=== PATIENT | male | born 1965 | race Caucasian/White ===

== ENCOUNTER 2017-11-22 08:21 | Day surgery (SDC) | payer BC ==
[2017-11-22] MEDS ORDERED: LACTATED RINGERS 1,000 ML IV ONE (08:34)
[2017-11-22] MEDS ORDERED: fentaNYL 100 MCG/2 ML VIAL IVP ONE (09:20)
[2017-11-22] MEDS ORDERED: MIDAZOLAM 2 MG/2 ML VIAL IVP ONE (09:20)
[2017-11-22 11:26] VITALS: BP 126/78
== END 2017-11-22 08:22 | disposition home or self-care (01) ==
LOC: SDS 08:21
PROVIDERS: ATTEND Surgery
PROC: 0DB68ZX Excision of Stomach, Via Natural or Artificial Opening Endoscopic, Diagnostic (ICD-10-PCS; 2017-11-22)
PROC: 0DBK8ZX Excision of Ascending Colon, Via Natural or Artificial Opening Endoscopic, Diagnostic (ICD-10-PCS; principal; 2017-11-22 09:15)
PROC: 0DB58ZX Excision of Esophagus, Via Natural or Artificial Opening Endoscopic, Diagnostic (ICD-10-PCS; 2017-11-22 09:15)
DX: Z12.11 Encounter for screening for malignant neoplasm of colon (principal); K21.9 Gastro-esophageal reflux disease without esophagitis; K31.7 Polyp of stomach and duodenum; D12.2 Benign neoplasm of ascending colon; K57.30 Diverticulosis of large intestine without perforation or abscess without bleeding
CPT/HCPCS: 43239; 45380; J7120

== ENCOUNTER 2019-09-10 08:00 | Outpatient (CLI) | payer BC, MEDICAID ==
[2019-09-10 12:34] LABS: BASOPHILS % (AUTO) 0.5 %; EOSINOPHILS # (AUTO) 0.2 10^3/uL (0.0-0.7); EOSINOPHILS % (AUTO) 2.8 %; HGB - HEMOGLOBIN 13.3 g/dL (14.0-18.0); LYMPHOCYTES # (AUTO) 1.6 10^3/uL (1.5-3.5); LYMPHOCYTES % (AUTO) 25.1 %; MEAN CORPUSCULAR HEMOGLOBIN 29.3 pg (27.0-31.0); MEAN CORPUSCULAR HGB CONC 33.3 g/dL (32.0-36.0); MEAN CORPUSCULAR VOLUME 88.1 fL (80.0-94.0); MEAN PLATELET VOLUME 10.9 fL (7.4-11.4); MONOCYTES # (AUTO) 0.6 10^3/uL (0.0-1.0); MONOCYTES % (AUTO) 9.8 %; NEUTROPHILS # (AUTO) 3.9 10^3/uL (1.5-6.6); NEUTROPHILS % (AUTO) 61.3 %; PLT - PLATELET COUNT 197 10^3/uL (130-450); RED BLOOD COUNT 4.54 10^6/uL (4.70-6.10); RED CELL DISTRIBUTION WIDTH 14.2 % (12.0-15.0); WHITE BLOOD COUNT 6.3 x10^3/uL (4.8-10.8)
[2019-09-10 12:50] LABS: ALBUMIN 4.4 g/dL (3.2-5.5); ALBUMIN/GLOBULIN RATIO 1.8 (1.0-2.2); ALKALINE PHOSPHATASE 62 IU/L (42-121); ALT ALANINE AMINOTRANSFERASE 24 IU/L (10-60); AST ASPARTATE AMINOTRANSFERASE 22 IU/L (10-42); BILIRUBIN,TOTAL 0.9 mg/dL (0.2-1.0); BUN - BLOOD UREA NITROGEN 15 mg/dL (6-20); CALCIUM 8.8 mg/dL (8.5-10.3); CARBON DIOXIDE - CO2 25 mmol/L (21-32); CHLORIDE 108 mmol/L (101-111); CHOL/HDL RATIO 4.3 (<5.0); CHOLESTEROL 204 mg/dL; GFR - MDRD 77 (>89); GLUCOSE 102 mg/dL (70-100); HDL CHOLESTEROL 47 mg/dL; LDL CHOLESTEROL,CALCULATED 137 mg/dL; LDL/HDL RATIO 2.9 (<3.6); SODIUM 141 mmol/L (135-145); TOTAL PROTEIN 6.9 g/dL (6.7-8.2); VLDL CHOLESTEROL 20 mg/dL
== END 2019-09-10 23:59 | disposition home or self-care (01) ==
LOC: LAB.WCP 08:00
PROVIDERS: ATTEND Family Medicine
DX: Z00.00 Encounter for general adult medical examination without abnormal findings (principal); Z12.5 Encounter for screening for malignant neoplasm of prostate
CPT/HCPCS: 36415; 80053; 80061; 83721; 84153; 84443; 85025

== ENCOUNTER 2020-09-23 10:09 | Outpatient (CLI) | payer MEDICAID ==
[2020-09-23 11:15] VITALS: BP 130/90
--- NOTE | 2020-09-23 11:15 | SLEEP CARE CONSULTATION ---
Information from patient questionnaire entered by Mckenzie Wong. I have reviewed and concur with the information entered by Mckeznie Wong. This document represents the service I personally performed and the decisions made by me, Nay Dangelo ARNP. History of Present Illness Service Date and Time: 09/23/2020 1009 Reason for Visit: New patient Chief Complaint: reports: Unrefreshed sleep, Observed pauses in breathing, Frequent awakenings at night, Other (difficulty falling asleep). denies: Insomnia, Snoring, Excessive daytime sleepiness, Fatigue Date of Onset: 25 years Usual bedtime: midnight Time it takes to fall asleep: 30-60 minutes Snores at night: No Observed to quit breathing while asleep: Yes (not in a long time) Sleeps alone due to snoring: No Number of times waking at night: 2-3 Reasons for waking at night: reports: Pain. denies: Choking, Snoring, Gasping for air Toss, Turn, or Twitch while sleeping: Yes Recalls having dreams: Yes Usually gets out of bed at: 0745 Tuesday-Tuesday, later Tuesday/Tuesday Feels refreshed in the morning: No Morning headache: No Sleepy or fatigued during the day: No Ever fallen asleep while driving: Yes (no accident; drowsy on long trips) Takes day naps: No Dreams during day naps: No Prior sleep studies: No Additional HPI information: I had the pleasure of seeing LINDA PACK today regarding the possibility of him having a sleep disorder. His current complaints are observed pauses in breathing, unrefreshed sleep, and frequent night awakenings. He states he has had difficulty falling asleep. He does have a history of a myofascial pain syndrome for which he was taking 2 oxycodone nightly to be able to sleep because he was waking up in pain several time during the night. About 6 weeks ago he stopped taking the oxycodone and after the first 5-6 days he feels he is sleeping better. He is currently using CBD inhaled in a vaporizer. He is considering transitioning to a tincture. His is here at the encouragement of his and his PCP. - Parasomnia Symptoms Ever been unable to move upon waking from sleep: Yes (once many years ago) Walks in sleep: No Talks in sleep: No Ever acted out dreams in sleep: No Ever felt weak in the knees when startled or emotional: No Bothered by creepy, crawly, restless sensations in legs: Yes (when very tired or if using laptop on lap; legs pinned in; massages) Problems with memory or concentration: Yes (some for time when not getting sleep/ sleep deprived memory gaps) Subjective Initial [place] Sleepiness Scale score: 8 (in 2020) Past Medical History Past Medical History: reports: Hypertension, Anxiety (no treatment needed), Impotence (sometime has difficulty maintaining an erection), GERD (treated with omeprazole, no issue for years), Attention deficit. 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 Patient is and lives in [place]. Have you smoked in the past 12 months: No Alcohol use: No Caffeine use: Yes Caffeine amount and frequency: 1 cup tea/day, Tuesday-Tuesday Family History Family history of sleep disordered breathing: Yes Family Hx Sleep Apnea: Sibling: Snoring, Sleep apnea - Treated Allergies and Home Medications Drug allergies reviewed: Yes (NKDA) Home medication list reviewed: Yes Allergy and home medication list: prilosec propanolol magnesium turmeric Review of Systems Weight gain over past 5 years: 20 Cardiovascular: reports: high blood pressure. denies: palpitations, chest pain, irregular heart rate or pulse, leg or foot swelling Respiratory: denies: shortness of breath, chronic cough Gastrointestinal: denies: heartburn, difficulty swallowing Urinary: reports: impotence Neurological: denies: headaches, seizure, head trauma, speech dysfunction, gait or balance problems Psychiatric: reports: Attention Deficit Hyperactivity, anxiety. denies: depression, mood disorder, claustrophobia Ear/Nose/Throat: reports: tonsillectomy, wisdom teeth removed. denies: nasal congestion, sinus problems, nose bleeds, dry mouth/throat, injury to nose Endocrine: denies: thyroid disease Musculoskeletal: reports: back pain. denies: muscle pain or cramping, mobility problems Immunologic: denies: allergies to food or environment Physical Exam Blood Pressure: 130/90 Cuff size: long Heart Rate: 63 O2 Saturation: 96 Height: 5 ft 9.5 in Weight: 247 lb Body Mass Index: 35.9 BMI Classification: Obese Neck circumference: 17.5 HEENT: No craniofacial malformation Nostrils: patent to airflow Turbinates: normal Septum: midline Mouth and throat: narrow oropharynx Soft palate: normal Hard palate: normal Uvula: normal Uvula visualization: 25% Mallampati Class III Tongue: enlarged in size with teeth moss on lateral edges Tonsils: absent bilaterally Chin and jaw: normal size and position Neck: normal w/o lymphadenopathy or thyromegaly Heart: regular rate and rhythm Lungs: clear bilaterally Impression and Plan 1. Suspected Obstructive Sleep Apnea-Hypopnea Syndrome, as observed cessation of breath while asleep, unrefreshed sleep, frequent night awakenings and cognitive impairment. He has a history of hypertension acid reflux and anxiety. I reviewed with patient that a narrow oropharynx and obesity are common predisposing factors for obstructive sleep apnea-hypopnea syndrome. I recommend proceeding to polysomnography to confirm the diagnosis and to assess severity. If the patient has significant sleep disordered breathing, a manual CPAP titration study will also be performed to find the optimal treatment pressure. I informed the patient of what the sleep studies involve and after some discussion, obtained agreement to proceed. The pathophysiology of obstructive sleep apnea-hypopnea syndrome was discussed with the patient and health risks of cardiovascular and cerebrovascular disease if not treated. AASM brochure for obstructive sleep apnea-hypopnea syndrome given and reviewed. Risks of drowsy driving discussed in detail and patient advised to avoid long distance driving and to stock puller at the first sign of drowsiness. Patient agreed to plan. * Schedule polysomnography +- manual CPAP titration study. * Avoid long distance driving or driving when feeling sleepy. * Avoid alcohol, sedative and muscle relaxant around bedtime. * Attempt to lose weight. * Review instructions provided by trained office staff on how to prepare for the sleep study. * Return for follow-up after sleep study completed. Counseling Topics: Weight loss health impact Visit Type: In Office Time Spent with Patient (minutes): 39 Provider Statement: I spent 100% of the Face to Face Visit with the patient with greater than 50% spent counseling the patient and coordination of care.
== END 2020-09-23 10:10 | disposition home or self-care (01) ==
LOC: SC 10:09
PROVIDERS: ATTEND Nurse Practitioner Family
DX: G47.8 Other sleep disorders (principal); R06.81 Apnea, not elsewhere classified; E66.9 Obesity, unspecified; Z68.35 Body mass index [BMI] 35.0-35.9, adult
CPT/HCPCS: 99203; 99212

== ENCOUNTER 2020-11-24 13:06 | Outpatient (CLI) | payer MEDICAID | END 2020-11-24 13:07 | disposition home or self-care (01) | LOC: SC 13:06 | PROVIDERS: ATTEND Nurse Practitioner Family | DX: G47.33 Obstructive sleep apnea (adult) (pediatric) (principal); R09.02 Hypoxemia; E66.3 Overweight; Z68.36 Body mass index [BMI] 36.0-36.9, adult | CPT/HCPCS: 95806 ==

== ENCOUNTER 2020-11-28 16:50 | Outpatient (CLI) | payer MEDICAID ==
--- NOTE | 2020-11-29 11:06 | XRAY Report ---
PROCEDURE: Lumbar Spine 2 View INDICATIONS: SCIATICA TECHNIQUE: 3 views of the lumbar spine were acquired. COMPARISON: None. FINDINGS: No fracture. Scattered multilevel endplate spurring and diffuse facet arthropathy. Severe narrowing of the L5-S1 disc space. Soft tissues: Overlying bowel gas pattern is normal. No s uspicious soft tissue calcifications. IMPRESSION: Multilevel lumbar spondylosis, most pronounced at L5-S1. Facet arthropathy Reviewed by: Nj Burkett MD on 11/29/2020 11:04 AM PST Approved by: Nj Burkett MD on 11/29/2020 11:04 AM PST Station ID: [id number]
== END 2020-11-28 16:51 | disposition home or self-care (01) ==
LOC: DI.N 16:50
PROVIDERS: ATTEND Physician Assistant Medical
DX: M47.27 Other spondylosis with radiculopathy, lumbosacral region (principal)

== ENCOUNTER 2020-12-05 16:44 | Outpatient (CLI) | payer MEDICAID ==
--- NOTE | 2020-12-05 15:50 | SLEEP CARE CONSULTATION ---
Information from patient questionnaire entered by Chyna Stoll. I have reviewed and concur with the information entered by Chyna Stoll. This document represents the service I personally performed and the decisions made by me, Jessie Motley, RN, MSN, COURT STENOGRAPHER. History of Present Illness Service Date and Time: 12/05/2020 1500 Initial [place] Sleepiness Scale score: 8 (in 2019) Current [place] Sleepiness Scale score: 7 Additional HPI information: LINDA PACK returns with spouse for telehealth video follow up and results of the recently performed home sleep study. Current history of witnessed apnea, unrefreshed sleep, frequent nocturnal awakenings, cognitive impairment as reviewed on initial consultation. He also has hypertension, anxiety and muscle skeletal pain. I explained the pathophysiology behind obstructive sleep apnea. We then spent quite a bit of time discussing different treatment options. For mild obstructive sleep apnea, surgery and oral appliance are alternatives to nasal CPAP therapy but in moderate or severe cases, nasal CPAP is the most effective and reliable treatment. I reviewed the impact of weight changes on sleep apnea and strongly recommended losing weight. After some discussion, the patient opted to go with the nasal CPAP therapy. Nasal autoCPAP set at [id number] will be ordered with rationale explained. A manual titration study will be ordered if unable to find optimal pressure with office adjustments. I explained how CPAP machine works with sample devices [email or web address] Dreamstation and [employer] [id number] and what to expect when using the machine. Using CPAP every night in order to get used to it was emphasized. Patient advised to put CPAP mask on before getting into bed so as not to fall asleep without CPAP. To assist acclimation to CPAP use, it could also be used for a short time during day while reading or watching TV. The patient was instructed to call the CPAP supplier to discuss any mechanical problem that may occur. If the mask given is uncomfortable or is difficult to keep on through the night even with adjustment, contact the CPAP supplier as many will replace with another mask style if notified before 30 days. If snoring or perceives is not getting enough air or too much air from the machine, notify this office. AAS patient education PAP tips to be sent to patient Patient counseled not drink alcohol less than 4 hours before bedtime as it can increase snoring and apnea. Patient does not drink alcohol. Patient was cautioned about risks of drowsy driving until sleepiness symptoms resolve. Patient denies drowsy driving. AAS patient education on snoring and sleep apnea to be sent to patient Sleep Study - Results Type of Sleep Study: Home sleep study Prior sleep studies: No Polysomnography/Home Sleep Study results: Physician Impression: The quality of the study is good. The length of the study is adequate (> 240 minutes). Please also see the tabulated and graphic data. 1. Obstructive Sleep Apnea-Hypopnea (ICD-10 G47.33), moderate, with an AHI of 23 .9/hr and lou SaO2 of 79%. During the study, the patient had 24 apneas (23 obstructive, 1 central, 0 mixed) and 104 hypopneas. The longest episode lasted 59.5 seconds. The respiratory events occurred slightly more frequently during supine sleep (supine AHI was 55.4 and non-supine, 21.82). 2. Hypoxemia (ICD-10 R09.02), moderate, with the lowest oxygen saturation of 79 % and 151.9 minutes with SaO2 under 90%. Baseline oxygen saturation was normal (Average oxygen saturation was 90%). Allergies and Home Medications Known drug allergies: No Home medication list reviewed: Yes (added melatonin 5mg hs ) Review of Systems Review of systems same as previous: No ( consult for back pain - degenerative disc disease lumbar spine L5 S1) Physical Exam Height: 5 ft 9.5 in Weight: 252 lb Body Mass Index: 36.6 BMI Classification: Obese Impression and Plan 1. Obstructive Sleep Apnea-Hypopnea Syndrome, moderate, with lowest oxygen saturation of 79%. Obviously this is the cause of the patients symptoms of unrefreshed sleep. Positive pressure therapy could benefit his hypertension, nocturnal hypoxia and anxiety. As mentioned above, the patient will be started on nasal autoCPAP therapy with pressure set at 5-15 cmH2O. A manual titration study will be completed if unable to find optimal treatment pressure with office adjustments or if hypoxia is not corrected by CPAP . Compliance guidelines also reviewed. A copy of compliance guidelines will be given for reference at check out. Because the apnea is more severe supine, I instructed to avoid sleeping supine using pillow positioning until able to start CPAP use. 2. Hypoxia, lou 79% with 151 minutes of oxygen under 90%, baseline 90%. Once the patient is using autoCPAP well and the apnea well controlled, an over night pulse oximetry will be ordered to determine if further evaluation is needed with a manual titration study. * Nasal auto CPAP therapy, pressure at 5-15 cm H2O. * overnight pulse oximetry with CPAP after apnea controlled * Attempt to lose weight. * Avoid alcohol consumption near bedtime. * Avoid supine sleep until using CPAP. * The patient is again cautioned about driving until sleepiness completely resolves. * Send [facility] pamphlets : snoring and sleep apnea and PAP treatment tips * Return one month after CPAP obtained. I will assess response to therapy and compliance at that time. Visit Type: Telehealth Video Video Type: Mat Patient Location: Office Other Participants: Spouse/Significant Other (Mariya ) Location of Provider: Home Patient agrees and consents to this telehealth visit type: Yes Patient agrees to have their insurance billed: Yes Time Spent with Patient (minutes): 32 and 7 minutes chart prep/ review consultation/ 10 minutes documentation Provider Statement: I spent 100% of the Telehealth Video Call with the patient with greater than 50% spent counseling the patient and coordination of care.
== END 2020-12-05 16:45 | disposition home or self-care (01) ==
LOC: SC 16:44
PROVIDERS: ATTEND Nurse Practitioner Family
DX: G47.33 Obstructive sleep apnea (adult) (pediatric) (principal); R09.02 Hypoxemia; E66.9 Obesity, unspecified; Z68.36 Body mass index [BMI] 36.0-36.9, adult

== ENCOUNTER 2021-04-24 10:45 | Outpatient (CLI) | payer MEDICAID ==
--- NOTE | 2021-04-24 11:17 | SLEEP CARE CONSULTATION ---
Information from patient questionnaire entered by Chyna Stoll. I have reviewed and concur with the information entered by Chyna Stoll. This document represents the service I personally performed and the decisions made by , Nay Dangelo ARNP. History of Present Illness Service Date and Time: 04/24/2021 1045 Previous diagnosis: Moderate, Obstructive Sleep Apnea-Hypopnea Syndrome AHI: 23.9 (in 2020) Reason for follow up: first compliance Equipment type: CPAP Equipment obtained from: [facility] (got initial supplies) Mask style: Full face Mask brand: Resmed Backup mask available: No (will keep old mask when replaced) Last cushion change: about 6 months Prior sleep studies: Yes Year and Where: 2020 - [facility] Type of Sleep Study: Home sleep study HPI additional information: LINDA PACK was diagnosed to have moderate, AHI 23.9, obstructive sleep apnea- hypopnea syndrome and returned today with spouse for CPAP therapy first compliance follow-up. CPAP Compliance Data - Data Reviewed with Patient Average duration of nightly device use: 5 hr 26 min Compliance rate %: 90 Current pressure setting (cmH2O): 5-15 (median 7.3, avg 11.3, max 12.6) Humidity settin Average residual AHI: 5.0 Central apnea: 0.7 Obstructive apnea: 0.8 Subjective Patient concerns: reports: air blowing in eyes (occasionally, adjustment helps), condensation in mask/hose, nasal congestion. denies: aerophagia, mask discomfort, mask leak noise, dry mouth, nose, throat, epistaxis, other Observed to snore while using device: No Current pressure setting perceived as: comfortable On therapy, patient: reports: sleeping better, awakening more refreshed, being more awake and alert during the day, more rested overall. denies: drowsiness while driving Initial [place] Sleepiness Scale score: 8 (in 2019) Current [place] Sleepiness Scale score: 4 Allergies and Home Medications Home medication list reviewed: Yes (Melatonin) Review of Systems Review of systems same as previous: Yes (no changes) Physical Exam Heart Rate: 61 O2 Saturation: 97 Height: 5 ft 9.5 in Weight: 247 lb Weight change since last visit: 5 lb loss Body Mass Index: 35.9 BMI Classification: Obese Impression and Plan 1. Obstructive Sleep Apnea-Hypopnea Syndrome, moderate, with good treatment compliance and good apnea control. On CPAP therapy, the patient has better sleep quality and is more rested overall. He was 100% compliant in the first 30 days of use of the CPAP machine with average residual AHI 6.2. He has had a handful of times when there was condensation in the mask. I advised him to reduce the humidity setting from 8 to 7 to reduce condensation. He was also cautioned to not overfill the water chamber. Other issues with mask haver resolved. He has not been receiving supplies. I advised him to reach out to the [employer] to order supplies. He and his voiced understanding. Patient's apnea severity and rationale for treatment to reduce apnea, improve sleep quality and reduce cardiovascular and cerebrovascular events was reviewed. I also reviewed the benefit of consistent device use of CPAP for hypertension, anxiety, and nocturnal hypoxia. * Change auto CPAP pressure to 9-13 cmH2O * Notify me if snoring with mask or feeling that the pressure is too much or too little * Continue to lose weight * Call this office if any problems using CPAP * Return for follow up in 3 months, or sooner if concerns arise Counseling Topics: Spare mask, Weight loss health impact Visit Type: In Office Time Spent with Patient (minutes): 24 Provider Statement: I spent 100% of the Face to Face Visit with the patient with greater than 50% spent counseling the patient and coordination of care.
== END 2021-04-24 10:46 | disposition home or self-care (01) ==
LOC: SC 10:45
PROVIDERS: ATTEND Nurse Practitioner Family
DX: G47.33 Obstructive sleep apnea (adult) (pediatric) (principal); E66.9 Obesity, unspecified; Z68.35 Body mass index [BMI] 35.0-35.9, adult
CPT/HCPCS: 99212; 99213

== ENCOUNTER 2021-06-05 14:18 | Outpatient (CLI) | payer MEDICAID ==
--- NOTE | 2021-06-05 14:38 | SLEEP CARE CONSULTATION ---
Information from patient questionnaire entered by Chyna Stoll. I have reviewed and concur with the information entered by Chyna Stoll. This document represents the service I personally performed and the decisions made by , Nay Dangelo ARNP. History of Present Illness Service Date and Time: 06/05/2021 1418 Previous diagnosis: Moderate, Obstructive Sleep Apnea-Hypopnea Syndrome AHI: 23.9 (in 2020) Reason for follow up: first compliance, other (requalify due to compliance failed by missing compliance visit) Equipment type: CPAP Equipment obtained from: [facility] (not getting supplies yet) Mask style: Full face Backup mask available: No (will keep old mask when replaced) Prior sleep studies: Yes Year and Where: 2020 - [facility] HPI additional information: LINDA PACK was diagnosed to have moderate, AHI 23.9, obstructive sleep apnea- hypopnea syndrome and returned today for CPAP therapy first compliance follow-up and need to re-qualify for CPAP. CPAP Compliance Data - Data Reviewed with Patient Average duration of nightly device use: 6 hr 29 min Compliance rate %: 100 (last 30)(met compliance 12/19/20-01/17/21) Current pressure setting (cmH2O): 9-13 Humidity settin Average residual AHI: 4.3 Subjective Patient concerns: reports: air blowing in eyes, dry mouth, nose, throat (getting better, 3-4 times and not as dry). denies: aerophagia, mask discomfort, mask leak noise, condensation in mask/hose, nasal congestion, epistaxis, other Observed to snore while using device: No Current pressure setting perceived as: comfortable On therapy, patient: reports: sleeping better, awakening more refreshed, being more awake and alert during the day, more rested overall. denies: drowsiness while driving Initial [place] Sleepiness Scale score: 8 (in 2019) Current [place] Sleepiness Scale score: 8 Allergies and Home Medications Home medication list reviewed: Yes (no changes) Review of Systems Review of systems same as previous: Yes (no changes) Physical Exam Heart Rate: 64 O2 Saturation: 94 Height: 5 ft 9.5 in Weight: 250 lb Body Mass Index: 36.3 BMI Classification: Obese Impression and Plan 1. Obstructive Sleep Apnea-Hypopnea Syndrome, moderate, with excellent treatment compliance and fair apnea control. On CPAP therapy, the patient has better sleep quality and is more rested overall. Patient was informed by [facility] that he missed getting his follow up compliance appointment within the 90 days required and so they denied his claim on the device and supplies. He needs to re-qualify for the CPAP machine. I recommend proceeding to polysomnography to confirm the diagnosis and to assess severity. I then obtained agreement to proceed. Patient's apnea severity and rationale for treatment to reduce apnea, improve sleep quality and reduce cardiovascular and cerebrovascular events was reviewed. I also reviewed the benefit of consistent device use of CPAP for hypertension and anxiety. Patient is trying to lose weight and I encouraged him to continue his efforts. * Continue auto CPAP pressure at 9-13 cmH2O * Polysomnography/HST to re-qualify for CPAP * Notify me if snoring with mask or feeling that the pressure is too much or too little * Attempt to lose weight * Call this office if any problems using CPAP * Return for follow up after study complete, or sooner if concerns arise Counseling Topics: Spare mask, Weight loss health impact Visit Type: In Office Time Spent with Patient (minutes): 16 Provider Statement: I spent 100% of the Face to Face Visit with the patient with greater than 50% spent counseling the patient and coordination of care.
== END 2021-06-05 14:19 | disposition home or self-care (01) ==
LOC: SC 14:18
PROVIDERS: ATTEND Nurse Practitioner Family
DX: G47.33 Obstructive sleep apnea (adult) (pediatric) (principal); E66.9 Obesity, unspecified; Z68.36 Body mass index [BMI] 36.0-36.9, adult
CPT/HCPCS: 99212

== ENCOUNTER 2021-06-19 12:30 | Outpatient (CLI) | payer MEDICAID | END 2021-06-19 12:31 | disposition home or self-care (01) | LOC: SC 12:30 | PROVIDERS: ATTEND Nurse Practitioner Family | DX: G47.33 Obstructive sleep apnea (adult) (pediatric) (principal); R09.02 Hypoxemia | CPT/HCPCS: 95806 ==

== ENCOUNTER 2021-07-10 11:30 | Outpatient (CLI) | payer MEDICAID ==
--- NOTE | 2021-07-10 12:02 | SLEEP CARE CONSULTATION ---
Information from patient questionnaire entered by Chyna Stoll. I have reviewed and concur with the information entered by Chyna Stoll. This document represents the service I personally performed and the decisions made by , Nay Dangelo ARNP. History of Present Illness Service Date and Time: 07/10/2021 1130 Initial [place] Sleepiness Scale score: 8 (in 2019) Current [place] Sleepiness Scale score: 13 Additional HPI information: LINDA PACK returns with spouse for follow up and results of the recently performed home sleep study. Patient previous sleep study showing moderate obstructive sleep apnea at 23.9 AHI. His home study today showed an average AHI of 12.1 and lou oxygen saturation of 85%. Patient is currently using CPAP and will continue nasal autoCPAP set at 9-13 cmH20. Sleep Study - Results Type of Sleep Study: Home sleep study Prior sleep studies: Yes Year and Where: 2020 - [facility] Polysomnography/Home Sleep Study results: Physician Impression: The quality of the study is good. The length of the study is adequate (> 240 minutes). Please also see the tabulated and graphic data. 1. Obstructive Sleep Apnea-Hypopnea (ICD-10 G47.33), mild, with an AHI of 12.1 /hr and lou SaO2 of 85%. During the study, the patient had 26 apneas (26 obstructive, 0 central, 0 mixed) and 52 hypopneas. The longest episode lasted 82.0 seconds. The respiratory events occurred more frequently during supine sleep (supine AHI was 35.0 and non-supine, 10.10). 2. Hypoxemia (ICD-10 R09.02), mild, with the lowest oxygen saturation of 85 % and 19.8 minutes with SaO2 under 90%. Baseline oxygen saturation was normal (Average oxygen saturation was 93%). Allergies and Home Medications Home medication list reviewed: Yes (no changes) Review of Systems Review of systems same as previous: Yes (no changes) Physical Exam Heart Rate: 56 O2 Saturation: 95 Height: 5 ft 9.5 in Weight: 247 lb Weight change since last visit: 3 lb loss Body Mass Index: 35.9 BMI Classification: Obese Impression and Plan 1. Obstructive Sleep Apnea-Hypopnea Syndrome, mild with current HST results. Patient failed CPAP therapy due to missing his compliance visit within appropriate time frame. He re-qualifies for his CPAP therapy and has already shown good compliance with its use. His current compliance as of today is 87% with an average use of 6 hours 8 minutes. His average residual AHI is 4.6 with pressure setting at 9-13 cmH2O. He will continue CPAP therapy for benefit of consistent device use for his hypertension and anxiety. Patient has lost 3 pounds since his last visit. He has resumed working with a personal development coach to increase exercise and lose weight. I encouraged him to continue his efforts. * Continue auto CPAP pressure at 9-13 cmH2O * Update supplies as needed * Notify me if snoring with mask or feeling that the pressure is too much or too little * Attempt to lose weight * Call this office if any problems using CPAP * Return for follow up in 1-2 months, or sooner if concerns arise Counseling Topics: Weight loss health impact Visit Type: In Office Time Spent with Patient (minutes): 19 Provider Statement: I spent 100% of the Face to Face Visit with the patient with greater than 50% spent counseling the patient and coordination of care.
== END 2021-07-10 11:31 | disposition home or self-care (01) ==
LOC: SC 11:30
PROVIDERS: ATTEND Nurse Practitioner Family
DX: G47.33 Obstructive sleep apnea (adult) (pediatric) (principal); E66.9 Obesity, unspecified; Z68.35 Body mass index [BMI] 35.0-35.9, adult
CPT/HCPCS: 99212

== ENCOUNTER 2023-10-04 08:44 | Outpatient (CLI) | payer MEDICAID ==
--- NOTE | 2023-10-04 09:17 | Sleep Patient Instructions ---
Sleep Center Visit Summary - Patient Visit Information Reason for Visit: Annual Visit - Patient Instructions Additional Instructions: You will continue with CPAP therapy with pressure changed to 9-11.6 cmH2O. A supply prescription will be updated with your DME. We encourage you to continue to try to lose weight. Please follow up with the sleep care office in 1 year. - Clinic Information Contact: [facility] [address] [place] [address] [email or web address] T: [phone]
--- NOTE | 2023-10-04 09:21 | SLEEP CARE CONSULTATION ---
Information from patient questionnaire entered by Corry Fong. I have reviewed and concur with the information entered by Corry Fong. This document represents the service I personally performed and the decisions made by , Nay Dangelo ARNP. History of Present Illness Service Date and Time: 10/04/2023 0844 Previous diagnosis: Moderate, Obstructive Sleep Apnea-Hypopnea Syndrome AHI: 23.9 (in 2020) Reason for follow up: annual (LAST SEEN 06/2021) Equipment type: CPAP (RESMED Airsense 10, s/u 11/2020) Equipment obtained from: [employer] (getting supplies) Mask style: Full face Backup mask available: No Prior sleep studies: Yes Year and Where: 2020 - [facility] Type of Sleep Study: Home sleep study HPI additional information: LINDA PACK was diagnosed to have moderate, AHI 23.9, obstructive sleep apnea- hypopnea syndrome and returned today for CPAP therapy annual follow-up. Sleep Study - Results Type of Sleep Study: Home sleep study Prior sleep studies: Yes Year and Where: 2020 - [facility] CPAP Compliance Data - Data Reviewed with Patient Average duration of nightly device use: 6 HRS 9 MINS Compliance rate %: 81 (10/03/2022-10/02/2023; 333/365 days used) Current pressure setting (cmH2O): 9-13 (avg 12.1, max 12.6) Average residual AHI: 2.5 Central apnea: 0.4 Obstructive apnea: 0.2 Hypopnea: 1.7 Average large leak: 7.7 L/min Subjective Patient concerns: reports: air blowing in eyes, dry mouth, nose, throat, other (ringing in ears - all the times). denies: aerophagia, mask discomfort, mask leak noise, condensation in mask/hose, nasal congestion, epistaxis Observed to snore while using device: No Current pressure setting perceived as: too high On therapy, patient: reports: sleeping better, awakening more refreshed, being more awake and alert during the day, more rested overall. denies: drowsiness while driving Initial [place] Sleepiness Scale score: 8 (in 2019) Current [place] Sleepiness Scale score: 5 Allergies and Home Medications Known drug allergies: No Drug allergies reviewed: Yes Home medication list reviewed: Yes (lamotrigine, clonazepam, atenolol, Welbutrin) Allergy and home medication list: Allergies No Known Drug Allergies Allergy (Verified 10/03/23 08:57) Review of Systems Review of systems same as previous: Yes (changes) Physical Exam Vital signs obtained and entered by: NAY ANDERSON Blood Pressure: 130/79 Cuff size: regular (left arm) Heart Rate: 64 O2 Saturation: 96 Height: 5 ft 9.5 in Weight: 244 lb Weight change since last visit: 3 lb loss Body Mass Index: 35.5 BMI Classification: Obese Impression and Plan 1. Obstructive Sleep Apnea-Hypopnea Syndrome, moderate, with good treatment compliance and good apnea control. On CPAP therapy, the patient has better sleep quality and is more rested overall. He states he feels a pressure is a little high. He has been experiencing ringing in his ears. I will adjust the pressure to see if this is contributing to the tinnitus and for patient comfort. The patients pressure will be changed to autoCPAP 9-11.6 cmH20. Patient advised to contact me if pressure change is uncomfortable so that it can be adjusted. Goals for apnea control discussed. Patient's apnea severity and rationale for treatment to reduce apnea, improve sleep quality and reduce cardiovascular and cerebrovascular events was reviewed. I also reviewed the benefit of consistent device use of CPAP for hypertension and anxiety. 2. Obesity, unspecified. Currently patients BMI is 35.5. He has lost weight. Obesity increases the risk of apnea, CPAP pressure requirements and overall health risks especially cardiovascular and diabetes. Thus patient is advised to continue to try to lose weight. * Change auto CPAP pressure to 9-11.6 cmH2O * Update supply prescription * Notify me if snoring with mask or feeling that the pressure is too much or too little * Attempt to lose weight * Call this office if any problems using CPAP * Return for follow up in 1 year, or sooner if concerns arise Counseling Topics: Spare mask, Weight loss health impact Prescriptions: Device supplies Follow up with Sleep Care in: 1 year Visit Type: In Office Time Spent with Patient (minutes): 29 Provider Statement: I spent 100% of the Face to Face Visit with the patient with greater than 50% spent counseling the patient and coordination of care.
[2023-10-04 09:24] VITALS: BP 130/79; O2SAT 96
== END 2023-10-04 08:45 | disposition home or self-care (01) ==
LOC: SC 08:44
PROVIDERS: ATTEND Nurse Practitioner Family
DX: G47.33 Obstructive sleep apnea (adult) (pediatric) (principal); E66.9 Obesity, unspecified; Z68.35 Body mass index [BMI] 35.0-35.9, adult
CPT/HCPCS: 99212; 99213

== ENCOUNTER 2023-12-01 08:42 | Outpatient (CLI) | payer MEDICAID ==
--- NOTE | 2023-12-01 16:01 | XRAY Report ---
PROCEDURE: Shoulder 2+V RT INDICATIONS: RIGHT SHOULDER PAIN TECHNIQUE: 3 views of the shoulder were acquired. COMPARISON: None. FINDINGS: Bones: No fractures or dislocations. No suspicious bony lesions. Visualized ribs appear intact. Moderate acromioclavicular degenerative narrowing. Soft tissues: No suspicious soft tissue calcifications. The visualized lungs are within normal limi ts. IMPRESSION: Moderate acromioclavicular degenerative narrowing. No visualized acute fracture or dislocation. Howev er, occult injury cannot be excluded. Recommend short interval imaging follow-up in 7-10 days as clin ically indicated for additional evaluation. Reviewed by: Bernarda Simpson MD on 12/01/2023 3:59 PM PST Approved by: Bernarda Simpson MD on 12/01/2023 3:59 PM [facility] Station ID: [id number]
== END 2023-12-01 08:43 | disposition home or self-care (01) ==
LOC: DI.N 08:42
PROVIDERS: ATTEND Nurse Practitioner Family
DX: M19.011 Primary osteoarthritis, right shoulder (principal)

== ENCOUNTER 2024-01-09 11:43 | Outpatient (CLI) | payer MEDICAID ==
--- NOTE | 2024-01-09 14:32 | Ultrasound Report ---
PROCEDURE: Testicle INDICATIONS: RIGHT TESTICULAR PAIN TECHNIQUE: Real-time scanning was performed of the scrotum and testicles, with image documentation. Color and p ulse Doppler interrogation was performed of both testicles. COMPARISON: None. FINDINGS: Right: Testicle is normal in size at 4.4 x 1.9 x 2.9 cm, and homogenous in echotexture. Epididymal head benign cyst measuring 0.4 x 0.4 x 0.5 cm. Epididymis is otherwise normal in overall size and mor phology. Small hydrocele. No varicoceles. Overlying scrotal skin is normal in thickness. Left: Testicle is normal in size at 3.6 x 1.9 x 3.3 cm, and homogeneous in echotexture. Epididymis is normal in overall size and morphology. Small hydrocele. No varicoceles. Overlying scrotal skin i s normal in thickness. Doppler: Color and pulse Doppler demonstrate normal and symmetric arterial flow in both testicles. IMPRESSION: 1.No sonographic abnormality of the bilateral testicles. 2.Small right epididymal head benign cyst measuring 0.4 x 0.4 x 0.5 cm. 3.Small bilateral hydroceles, left greater than right. Reviewed by: Felipe Gomez MD on 01/09/2024 2:30 PM PST Approved by: Felipe Gomez MD on 01/09/2024 2:30 PM PST Station ID: [id number]
== END 2024-01-09 11:44 | disposition home or self-care (01) ==
LOC: DI 11:43
PROVIDERS: ATTEND Nurse Practitioner Family
DX: N50.3 Cyst of epididymis (principal); N43.3 Hydrocele, unspecified; N50.811 Right testicular pain

== ENCOUNTER 2024-05-16 11:28 | Outpatient (CLI) | payer MEDICAID ==
--- NOTE | 2024-05-16 12:19 | Sleep Patient Instructions ---
Sleep Center Visit Summary - Patient Visit Information Reason for Visit: 7-month follow-up - Patient Instructions Additional Instructions: You were here for follow up of CPAP therapy. You will be continued on CPAP therapy with pressure at 9-10.6 cmH2O. Please let us know if the pressure change is uncomfortable and we can make further adjustments of the pressure. You should follow up with sleep care in 1-2 months. You may contact us sooner for any questions or concerns. - Clinic Information Contact: [facility] [address] [place] [address] [email or web address] T: [phone]
--- NOTE | 2024-05-16 12:31 | SLEEP CARE CONSULTATION ---
Information from patient questionnaire entered by Corry Fong. I have reviewed and concur with the information entered by Corry Fong. This document represents the service I personally performed and the decisions made by , Nay Dangelo ARNP. History of Present Illness Service Date and Time: 05/16/2024 1128 Previous diagnosis: Moderate, Obstructive Sleep Apnea-Hypopnea Syndrome AHI: 23.9 (in 2020) Reason for follow up: other (7 MONTH F/U TINNITUS) Accompanied by: Spouse (Mariya) Equipment type: CPAP (RESMED Airsense 10, s/u 11/2020) Equipment obtained from: [employer] (getting supplies) Mask style: Nasal Mask brand: Resmed ([id number]) Backup mask available: No Last cushion change: 1.5 months, original cushion Prior sleep studies: Yes Year and Where: 2020 - [facility] Type of Sleep Study: Home sleep study HPI additional information: LINDA PCAK was diagnosed to have moderate, AHI 23.9, obstructive sleep apnea- hypopnea syndrome and returned today for CPAP therapy 7 month follow-up. Sleep Study - Results Type of Sleep Study: Home sleep study Prior sleep studies: Yes Year and Where: 2020 - [facility] CPAP Compliance Data - Data Reviewed with Patient Average duration of nightly device use: 5 HRS 55 MINS Compliance rate %: 87 (10/17/23-05/13/24; 207/210 days used) Current pressure setting (cmH2O): 9-11.6 (avg 11.2) Average residual AHI: 1.4 Central apnea: 0.2 Obstructive apnea: 0.2 Hypopnea: 0.8 Average large leak: 9 L/min Subjective Patient concerns: reports: condensation in mask/hose, other (tinnitus). denies: aerophagia, mask discomfort, air blowing in eyes, mask leak noise, nasal congestion, dry mouth, nose, throat, epistaxis Observed to snore while using device: No Current pressure setting perceived as: comfortable On therapy, patient: reports: sleeping better, awakening more refreshed, being more awake and alert during the day, more rested overall. denies: drowsiness while driving Initial [place] Sleepiness Scale score: 8 (in 2019) Current [place] Sleepiness Scale score: 14 (05/16/24) Allergies and Home Medications Known drug allergies: No Drug allergies reviewed: Yes Home medication list reviewed: Yes (as listed) Allergy and home medication list: Allergies No Known Drug Allergies Allergy (Verified 05/14/24 12:44) Home Medications Medication Instructions Recorded Confirmed Last Taken Type Docusate Sodium 250Mg Capsule 250 mg PO DAILY 11/22/17 05/16/24 11/20/17 History [Colace 250Mg Capsule] Lactobacillus Acidophilus 1 each PO DAILY 11/22/17 05/16/24 11/20/17 History [Probiotic Acidophilus] Omeprazole [PriLOSEC] 20 mg PO BID 11/22/17 05/16/24 11/21/17 History Turmeric Root Extract [Turmeric] 500 mg PO QID 11/22/17 05/16/24 11/20/17 History diphenhydrAMINE [Benadryl] 50 mg PO HS 11/22/17 05/16/24 11/21/17 History oxyCODONE/ACET 5/325 [Percocet 5 2 each PO DAILY PM 11/22/17 05/16/24 11/21/17 History mg/325 mg] Losartan Potassium See Rx Instructions .ROUTE .COMPLEX 05/16/24 05/16/24 Unknown History atenoloL [Tenormin] See Rx Instructions .ROUTE .COMPLEX 05/16/24 05/16/24 Unknown History hydroCHLOROthiazide [Hydrodiuril] See Rx Instructions .ROUTE .COMPLEX 05/16/24 05/16/24 Unknown History Review of Systems Review of systems same as previous: Yes (NO CHANGE) Physical Exam Vital signs obtained and entered by: CORRY De Guzman MA Blood Pressure: 132/78 (LEFT ARM) Cuff size: long Heart Rate: 57 O2 Saturation: 97 Height: 5 ft 9.5 in Weight: 247 lb 9.6 oz Body Mass Index: 36.0 BMI Classification: Obese Impression and Plan 1. Obstructive Sleep Apnea-Hypopnea Syndrome, moderate, with good treatment compliance and good apnea control. On CPAP therapy, the patient has better sleep quality and is more rested overall. He continues to have worsening tinnitus with using the CPAP. I reduced his pressure at his last visit but he says it made no difference in his tinnitus. I reviewed his data download and his apnea is better controlled at the lower pressures. I will try another pressure reduction to see if this will reduce tinnitus. The patients pressure will be changed to autoCPAP 9-10.6 cmH20. Patient advised to contact me if pressure change is uncomfortable so that it can be adjusted. Goals for apnea control discussed. I also advised that he seek a referral from his PCP for an ENT evaluation. He voiced understanding and agreement with plan. Patient's apnea severity and rationale for treatment to reduce apnea, improve sleep quality and reduce cardiovascular and cerebrovascular events was reviewed. I also reviewed the benefit of consistent device use of CPAP for hypertension, anxiety. 2. Obesity, unspecified. Currently patients BMI is 36. Obesity increases the risk of apnea, CPAP pressure requirements and overall health risks especially cardiovascular and diabetes. Thus patient is advised to lose weight. * Change auto CPAP pressure to 9-10.6 cmH2O * Notify me if snoring with mask or feeling that the pressure is too much or too little * Attempt to lose weight * Call this office if any problems using CPAP * Return for follow up in 1-2 months, or sooner if concerns arise Adjust device pressure to (cmH2O): 9-10.6 Counseling Topics: Spare mask, Weight loss health impact Visit Type: In Office Time Spent with Patient (minutes): 26 Provider Statement: I spent 100% of the Face to Face Visit with the patient with greater than 50% spent counseling the patient and coordination of care.
[2024-05-16 12:36] VITALS: BP 132/78; O2SAT 97
== END 2024-05-16 11:29 | disposition home or self-care (01) ==
LOC: SC 11:28
PROVIDERS: ATTEND Nurse Practitioner Family
DX: G47.33 Obstructive sleep apnea (adult) (pediatric) (principal); E66.9 Obesity, unspecified; Z68.36 Body mass index [BMI] 36.0-36.9, adult
CPT/HCPCS: 99212; 99213

== ENCOUNTER 2024-07-05 11:19 | Outpatient (CLI) | payer MEDICAID ==
--- NOTE | 2024-07-05 11:51 | Sleep Patient Instructions ---
Sleep Center Visit Summary - Patient Visit Information Reason for Visit: 6-week follow-up - Patient Instructions Additional Instructions: You were here for follow up of CPAP therapy. You will be continued on CPAP therapy with pressure at 9-10.6 cmH2O. You should follow up with sleep care in 12 months. You may contact us sooner for any questions or concerns. - Clinic Information Contact: [facility] [address] [place] [id number] [email or web address] T: [phone]
--- NOTE | 2024-07-05 11:57 | SLEEP CARE CONSULTATION ---
Information from patient questionnaire entered by Corry Fong. I have reviewed and concur with the information entered by Corry Fong. This document represents the service I personally performed and the decisions made by , Nay Dangelo ARNP. History of Present Illness Service Date and Time: 07/05/2024 1119 Previous diagnosis: Moderate, Obstructive Sleep Apnea-Hypopnea Syndrome AHI: 23.9 (in 2020) Reason for follow up: other (6 WEEK F/U) Accompanied by: Spouse Equipment type: CPAP (RESMED Airsense 10, s/u 11/2020) Equipment obtained from: [employer] (getting supplies) Mask style: Nasal Mask brand: Resmed (AirFit [id number]) Backup mask available: No [facility] Type of Sleep Study: Home sleep study HPI additional information: LINDA PACK was diagnosed to have moderate, AHI 23.9, obstructive sleep apnea- hypopnea syndrome and returned today for CPAP therapy six week follow-up. Sleep Study - Results Type of Sleep Study: Home sleep study Prior sleep [facility]: Yes [facility] CP[facility] Compliance Data - Data Reviewed with Patient Average duration of nightly device use: 5 HRS 17 MINS Compliance rate %: 77 (05/20/24-07/02/24; 44/44 days used) Current pressure setting (cmH2O): 9-10.6 Average residual AHI: 3.7 Central apnea: 0.9 Obstructive apnea: 0.3 Hypopnea: 2 Average large leak: 2.5 L/min Subjective Patient concerns: reports: nasal congestion, dry mouth, nose, throat. denies: aerophagia, mask discomfort, air blowing in eyes, mask leak noise, condensation in mask/hose, epistaxis Observed to snore while using device: No Current pressure setting perceived as: too high On therapy, patient: reports: sleeping better, awakening more refreshed. denies: drowsiness while driving Initial [place] Sleepiness Scale score: 8 (in 2019) Current [place] Sleepiness Scale score: 17 (07/05/24) Allergies and Home Medications Known drug allergies: No Drug allergies reviewed: Yes Home medication list reviewed: Yes (no changes) Allergy and home medication list: Allergies No Known Drug Allergies Allergy (Verified 07/05/24 11:26) Review of Systems Review of systems same as previous: Yes (NO CHANGE) Physical Exam Vital signs obtained and entered by: CORRY De Guzman MA Blood Pressure: 133/77 (RIGHT ARM) Cuff size: regular Heart Rate: 56 O2 Saturation: 97 Height: 5 ft 9.5 in Weight: 226 lb Weight change since last visit: 21 Body Mass Index: 32.8 BMI Classification: Obese Impression and Plan 1. Obstructive Sleep Apnea-Hypopnea Syndrome, moderate, with good treatment compliance and good apnea control. On CPAP therapy, the patient has better sleep quality and is more rested overall. He has had some improvement of his tinnitus with the reduction of pressure at his last visit. He still feels the pressure may be too high but his residual AHI is at 3.7 and I do not feel a further reduction would be able to control apneas well. He states he thinks he can continue at current pressure. He has changed to a nasal cushion mask with good seal and comfort. Patient's apnea severity and rationale for treatment to reduce apnea, improve sleep quality and reduce cardiovascular and cerebrovascular events was reviewed. I also reviewed the benefit of consistent device use of CPAP for hypertension, anxiety. 2. Obesity, unspecified. Currently patients BMI is 32.8. He has lost weight following a "carnivore" diet. Obesity increases the risk of apnea, CPAP pressure requirements and overall health risks especially cardiovascular and diabetes. Thus patient is advised to continue to try to lose weight. * Continue auto CPAP pressure at 9-10.6 cmH2O * Notify me if snoring with mask or feeling that the pressure is too much or too little * Attempt to lose weight * Call this office if any problems using CPAP * Return for follow up in 12 months, or sooner if concerns arise Counseling Topics: Spare mask, Weight loss health impact Follow up with Sleep Care in: 1 year Visit Type: In Office Time Spent with Patient (minutes): 21 Provider Statement: I spent 100% of the Face to Face Visit with the patient with greater than 50% spent counseling the patient and coordination of care.
[2024-07-05 11:59] VITALS: BP 133/77; O2SAT 97
== END 2024-07-05 11:20 | disposition home or self-care (01) ==
LOC: SC 11:19
PROVIDERS: ATTEND Nurse Practitioner Family
DX: G47.33 Obstructive sleep apnea (adult) (pediatric) (principal); E66.9 Obesity, unspecified; Z68.32 Body mass index [BMI] 32.0-32.9, adult
CPT/HCPCS: 99212; 99213